=== PATIENT | female | born 1980 | race Two or more races ===

== ENCOUNTER 2017-10-14 22:26 | Emergency (ER) | payer OTHER ==
[~2017-10-14] VITALS: Ht 157.5 cm; Wt 81.6 kg
--- NOTE | 2017-10-14 23:05 | NUR ---
BIBSELF C/O POSSIBLE PINK EYE, COUGH AND FEVER X 4 DAYS. PT AOX3 RR EVEN AND UNLABORED. NO SOB NOTED. NAD NOTED. NO NVD AT THIS TIME. PT NOT DIAPHORETIC. PT WAITING FOR MD DAS.
--- NOTE | 2017-10-14 23:12 | NUR ---
DR. MOYER AT BEDSIDE FOR EVAL.
[2017-10-14] MEDS ORDERED: GUAIFENESIN/D-METHORPHAN HB 5 ML UDC ONE (23:15)
[2017-10-14] MEDS ORDERED: IBUPROFEN 400 MG TABLET ONE (23:15)
--- NOTE | 2017-10-14 23:20 | NUR ---
INFLUENZA SWAB COLLECTED. CALL LAB FOR BOILER ROOM OPERATOR.
[2017-10-14] MEDS ORDERED: IBUPROFEN 400 MG TABLET PO ONE (23:30)
[2017-10-14] MEDS ORDERED: GUAIFENESIN/D-METHORPHAN HB 5 ML UDC PO ONE (23:30)
--- NOTE | 2017-10-15 00:45 | NUR ---
Patient discharged to home in stable condition. Written and verbal after care instructions given. Patient verbalizes understanding of instruction. ambulatory with a steady gait
[2017-10-15 01:05] VITALS: BP 112/57
== END 2017-10-15 00:45 | disposition home or self-care (01) ==
LOC: ER 22:32
DX: J10.1 Influenza due to other identified influenza virus with other respiratory manifestations (principal); H10.33 Unspecified acute conjunctivitis, bilateral; F17.200 Nicotine dependence, unspecified, uncomplicated
CPT/HCPCS: 87804 ×2; 99284; A4606; Z7610; 87400